=== PATIENT | female | born 1950 | race Caucasian/White ===

== ENCOUNTER → 2020-09-20 | Outpatient (CLI) | payer OTHER ==
[~2020-09-20] MED LIST: ASPIRIN EC81 MG PO; BENICAR40 MG PO; COZAAR100 MG PO; DILTIAZEM HCL30 MG PO; DITROPAN 5 MG TA5 MG PO; ELIQUIS5 MG PO; HYDROCHLOROTH12.5 MG PO; PROTONIX40 MG PO; TIKOSYN250 MCG PO; VALSARTAN80 MG PO
== END ==
LOC: HEART 5 09:04
DX: I20.9 Angina pectoris, unspecified (principal); I48.91 Unspecified atrial fibrillation; Z79.899 Other long term (current) drug therapy
CPT/HCPCS: 94010; 94729

== ENCOUNTER → 2020-09-27 | Outpatient (CLI) | payer OTHER | LOC: HEART 5 08:37 | DX: I20.9 Angina pectoris, unspecified (principal); R94.39 Abnormal result of other cardiovascular function study | CPT/HCPCS: 78452; A9502; J2785 ==

== ENCOUNTER → 2021-11-15 | Outpatient (CLI) | payer OTHER | LOC: HEART 5 09:21 | DX: R06.02 Shortness of breath (principal); Z79.899 Other long term (current) drug therapy | CPT/HCPCS: 94060; 94729 ==